=== PATIENT | male | born 1960 | race Caucasian/White ===

== ENCOUNTER 2018-06-28 15:16 | Emergency (ER) | payer BC ==
[~2018-06-28] VITALS: Ht 175.3 cm; Wt 81.2 kg
[2018-06-28 15:40] VITALS: BP 153/103
[2018-06-28] MEDS ORDERED: Bacitracin Oint UD TOPIC ONE (15:45)
[2018-06-28] MEDS ORDERED: Tetanus/Diptheria/Pertussis Vaccine 0.5ml Syr IM ONE (15:45)
--- NOTE | 2018-06-28 15:49 | Emergency Room Report ---
History of Present Illness General Chief Complaint: Animal Bite Source: Patient Present Illness HPI 58-year-old male patient presents ER complaining of an old by status post a few hours ago. Reports he is bite on the back of his left upper arm and left lower leg. Reports worse on arm. States does not know tetanus vaccination status. Denies pain or loss range of motion. Reports bleeding well-controlled. Denies red streaking. Denies fever, chest pain, shortness of breath. Reports that on her dog's dog is up-to-date on its shots. Allergies: Coded Allergies: No Known Allergies (Unverified , 06/28/18) Patient History Past Medical History: see triage record Reviewed Nursing Documentation: PMH: Agreed; PSxH: Agreed Nursing Documentation-PMH Past Medical History: No History, Except For Hx Cardiac Problems: Yes - Stent Review of Systems All Other Systems: negative except mentioned in HPI Physical Exam Vital Signs Date Time Temp Pulse Resp B/P (MAP) Pulse Ox O2 Delivery O2 Flow Rate FiO2 06/28/18 15:34 98.1 95 20 153/103 96 Room Air Sp02 EP Interpretation: reviewed, normal General Appearance: well appearing, no apparent distress, alert, GCS 15, non- toxic Head: normocephalic, atraumatic Eyes: bilateral eye normal inspection, bilateral eye PERRL ENT: hearing grossly normal, normal pharynx, no angioedema, normal voice, uvula midline, moist mucus membranes Neck: full range of motion Respiratory: lungs clear, normal breath sounds, no rhonchi, no respiratory distress, no accessory muscle use, no wheezing, speaking full sentences Cardiovascular #1: regular rate, rhythm, no edema Cardiovascular #2: 2+ radial (R), 2+ radial (L) Musculoskeletal: back normal, digits/nails normal, gait/station normal, normal range of motion, non-tender Neurologic: alert, oriented x3, responsive, motor strength/tone normal, sensory intact Skin: other - left upper posterior arm: 2 cm superficial abrasions consistent with bite pearson, no puncture wounds, no surrounding erythema or edema, no active bleeding or drainage, no red streaking; Left posterior knee: multiple small superifical abrasions consistent with bite pearson, no erythema or edema, no active bleeding or drainage, no red streaking Medical Decision Making PA Attestation Dr. De Anda is my supervising Physician whom patient management has been discussed with. Diagnostic Impression: Primary Impression: Bite by animal ER Course Pt presents to ED c/o dog bite. DDX considered but are not limited to animal bite, abrasion, cellulitis, contusion, fracture. VITALS Patient is afebrile ED COURSE: patient declined pain medication. Full ROM, no puncture wounds, no foreign body on examination and exploration of wound, does not require xray at this time. Posterior left arm and left knee no active bleeding or draining. Wound clean and placed in sterile dressing, Bacitracin applied to wound. TDap provided to patient. Rx provided for Augmentin. Patient instructed to follow up with PCP for wound check in 2-3 days and complete full course of antibiotics. DISCHARGE: Rx provided for Augmentin Rx provided for bacitracin At this time pt is stable for d/c to home. patient resting comfortably, in no acute distress, nontoxic appearing Will provide with patient care instructions and any necessary prescriptions. Patient to take medication as instructed. Care plan and follow-up instructions provided. Patient questions asked and answered. ER precautions given. Patient instructed to return to ER immediately for any new or worsening of symptoms. - Please note that this Emergency Department Report was dictated using [employer] technology software, occasionally this can lead to erroneous entry secondary to interpretation by the dictation equipment. Last Vital Signs Date Time Temp Pulse Resp B/P (MAP) Pulse Ox O2 Delivery O2 Flow Rate FiO2 06/28/18 15:34 98.1 95 20 153/103 96 Room Air Disposition: HOME, SELF-CARE Condition: Stable Scripts Bacitracin/Polymyxin B Sulfate (BACITRACIN-POLYMYXIN OINTMENT) 28.35 Gm Oint...g. 1 APPLIC TP BID, #28 GM Prov: Chadd Da Silva 06/28/18 Amoxicillin/Potassium Clav 875-125* (AUGMENTIN 875-125 TABLET*) 1 Each Tablet 1 TAB ORAL TWICE A DAY, #14 TAB Prov: Chadd Da Silva 06/28/18 Patient Instructions: Animal Bite Additional Instructions: Followup with primary care provider in 2- 3 days for wound check. Take medications as directed. Keep clean and dry. Patient questions asked and answered. ER precautions given, patient instructed to return to ER immediately for any new or worsening of symptoms. Chadd Da Silva Jun 28, 2018 15:49
[2018-06-28] MEDS ORDERED: BACITRACIN-P28.35 GM TP (16:13)
[2018-06-28] MEDS ORDERED: AUGMENTIN 875-1 EAC1 ORAL (16:13)
[2018-06-28 16:20] VITALS: BP 143/99
== END 2018-06-28 18:00 | disposition home or self-care (01) ==
LOC: EMR 17:39
DX: S50.812A Abrasion of left forearm, initial encounter (principal); S80.212A Abrasion, left knee, initial encounter; W54.0XXA Bitten by dog, initial encounter; Y92.9 Unspecified place or not applicable; Z23 Encounter for immunization
CPT/HCPCS: 90471; 90715; 99283